=== PATIENT | male | born 1995 | race Caucasian/White ===

== ENCOUNTER 2017-10-02 09:26 | Emergency (ER) ==
[2017-10-02 09:31] VITALS: BP 111/73; TEMP 99; BMI 30.1
--- NOTE | 2017-10-02 10:04 | ED.PDOC ---
General ED Provider: Dr. TATYANA MARROQUIN Chief Complaint: Fever Stated Complaint: fever , cough, flu like symptoms Time Seen by Physician: 09:30 Mode of Arrival: Walk-In Information Source: Patient Exam Limitations: No limitations Primary Care Provider: ALCON RUSSO Nursing and Triage Documentation Reviewed and Agree: Yes Reviewed sepsis parameters & appropriate labs ordered?: Yes System Inflammatory Response Syndrome: Not Applicable Sepsis Protocol: For patient's 13 years and over: Temp is 96.8 and below OR 101 and greater Pulse >90 BPM Resp >20/minute Acutely Altered Mental Status Are patient's symptoms suggestive of a new infection, such as: -Pneumonia -Skin, Soft Tissue -Endocarditis -UTI -Bone, Joint Infection -Implantable Device -Acute Abdominal Infection -Wound Infection -Meningitis -Blood Stream Catheter Infection -Unknown EENT Complaint Exam - Throat Complaint/Exam Onset/Duration: 2 days flu like Symptoms Are: Still present Timimg: Intermittent Initial Severity: Mild Current Severity: Mild Associated Signs and Symptoms: Reports: Cough, Nasal congestion. Denies: Fever , Dysphagia, Drooling, Foreign body sensation, Chills, Wheezing, Hoarseness, Sinus discomfort, Difficulty breathing, Lethargy, Irritability, Decreased activity, Vomiting, Diarrhea, Decreased hearing, Ear drainage Uvula Midline: Yes Misty-tonsillar Fluctuence: No Scarlatinaform Rash Present: No Stridor Present: No Sinus Tenderness Present: No Tonsillar Hypertrophy Present: No Tonsillar Exudate Present: No Misty-tonsillar Swelling Present: No Adenopathy Present: No Splenomegaly Present: No Review of Systems - Review Of Systems Constitutional: Reports: No symptoms Eyes: Reports: No symptoms Ears, Nose, Mouth, Throat: Reports: No symptoms Respiratory: Reports: Cough Cardiac: Reports: No symptoms GI: Reports: No symptoms : Reports: No symptoms Musculoskeletal: Reports: No symptoms Skin: Reports: No symptoms Neurological: Reports: No symptoms Endocrine: Reports: No symptoms Hematologic/Lymphatic: Reports: No symptoms All Other Systems: Reviewed and Negative Past Medical History - Past Medical History Previously Healthy: Yes Endocrine: Reports: None Cardiovascular: Reports: None Respiratory: Reports: None Hematological: Reports: None Gastrointestinal: Reports: None Genitourinary: Reports: None Neuro/Psych: Reports: Migraine, Other (hydrocephalus as child - was told he would grow out of it) Musculoskeletal: Reports: Other (spondylosis spine) Cancer: Reports: None 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 - Surgical History General Surgical History: Reports: None - Family History Family History: Reports: None - Social History Smoking Status: Current every day smoker, Light tobacco smoker Hx Substance Use: No Alcohol Screening: Occasionally Physical Exam - Physical Exam Appearance: Well-appearing, No pain distress, Well-nourished Eyes: JEREMIAH, EOMI, Conjunctiva clear ENT: Ears normal, Nose normal, Epistaxis, Erythema Respiratory: Airway patent, Breath sounds clear, Breath sounds equal, Respirations nonlabored Cardiovascular: RRR, Pulses normal, No rub, No murmur GI/: Soft, Nontender, No masses, Bowel sounds normal, No Organomegaly Musculoskeletal: Normal strength, ROM intact, No edema, No calf tenderness Skin: Warm, Dry, Normal color Neurological: Sensation intact, Motor intact, Reflexes intact, Cranial nerves intact, Alert, Oriented Psychiatric: Affect appropriate, Mood appropriate Critical Care Note - Critical Care Note Total Time (mins): 0 Course - Course Vital Signs: Temp Pulse Resp BP Pulse Ox 10/02/17 09:27 99 F 77 20 111/73 96 Departure - Departure Time of Disposition: 10:02 Disposition: HOME SELF-CARE Discharge Problem: Fever, Bronchitis Instructions: Pharyngitis (ED), Viral Syndrome (ED) Condition: Good Pt referred to PMD for follow-up: Yes Additional Instructions: Please call your Family Physician as soon as possible to schedule a follow-up appointment. Allergies/Adverse Reactions: Allergies No Known Allergies Allergy (Verified 10/02/17 09:33) Home Medications: Ambulatory Orders 1 [No Reported Medications] 10/02/17
== END 2017-10-02 10:07 | disposition home or self-care (01) ==
LOC: ED 09:26
DX: J40 Bronchitis, not specified as acute or chronic (principal); F17.210 Nicotine dependence, cigarettes, uncomplicated
CPT/HCPCS: 99282

== ENCOUNTER 2018-12-26 03:17 | Emergency (ER) ==
[2018-12-26 03:22] VITALS: BP 132/90; TEMP 98; BMI 31.7
[2018-12-26] MEDS ORDERED: ZOFRAN 4 MG/2 ML IM STA (03:39)
[2018-12-26] MEDS ORDERED: DECADRON 4 MG/ML SDV IM STA (03:39)
[2018-12-26] MEDS ORDERED: DILAUDID 1 MG/ML SYRINGE IM STA (03:39)
--- NOTE | 2018-12-26 04:34 | CT ---
EXAM: CT lumbar spine without intravenous contrast 12/26/2018. Sagittal and coronal reformatted sarah ges obtained HISTORY: Back pain with radiculopathy COMPARISON: MRI thoracic spine 07/01/2016 FINDINGS: Transitional anatomy is present. There are six non-rib bearing lumbar-type vertebral bodi es. For the purpose of this examination this will be referred to as L1-L6. There is no evidence of acute fracture. 3 mm anterolisthesis of L6 on S1 secondary to bilateral L6 pars defects. This appea rs chronic. Anterior wedging configuration of T11, T12 and L1 appears chronic. Tiny anterior osteophyte formatio n. Multilevel small posterior disc bulge flattening the thecal sac. No definitive spinal stenosis. IMPRESSION: 1. Transitional anatomy. There are six lumbar non-rib bearing vertebral bodies. For the purpose of this examination these are referred to as L1-L6. 2. 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 3. Chronic degenerative findings as above. No acute osseous abnormality.
--- NOTE | 2018-12-26 04:58 | ED.PDOC ---
General ED Provider: Dr. MALDONADO GUTIERREZ-ER Chief Complaint: Extremity Pain/Injury Stated Complaint: my back hurts and my feet are numb Time Seen by Physician: 03:20 Mode of Arrival: Walk-In Information Source: Patient Exam Limitations: No limitations Primary Care Provider: ALCON RUSSO Nursing and Triage Documentation Reviewed and Agree: Yes Does patient meet sepsis criteria?: No System Inflammatory Response Syndrome: Not Applicable Sepsis Protocol: For patient's 13 years and over: Temp is 96.8 and below OR 101 and greater Pulse >90 BPM Resp >20/minute Acutely Altered Mental Status Are patient's symptoms suggestive of a new infection, such as: -Pneumonia -Skin, Soft Tissue -Endocarditis -UTI -Bone, Joint Infection -Implantable Device -Acute Abdominal Infection -Wound Infection -Meningitis -Blood Stream Catheter Infection -Unknown Musculoskeletal Complaint Exam - Back Pain Complaint/Exam Mechanism of Injury: Reports: No known trauma Onset/Duration: 2 days Symptoms Are: Still present Timing: Constant Initial Severity: Mild Current Severity: Moderate Location: Reports: Discrete Aggravating: Reports: Movements, Lifting, Bending, Walking Alleviating: Reports: Position Associated Signs and Symptoms: Reports: Tingling Epidural Abcess Risk Factors: Reports: None Related Surgical History: Reports: None Focal Tenderness: Yes Paraspinal Muscle Tenderness: No Paraspinal Muscle Spasm: No Scoliosis: No Lordosis: No Kyphosis: No SLR Test: Right Negative, Left Negative Hip Motion Testing Pain: Right Negative, Left Negative Focal Weakness: Present: None Focal Sensory Loss: Present: RLE, LLE Gait: Present: Abnormal Differential Diagnoses: Compressive Cord Syndrome, Herniated Disk Review of Systems - Review Of Systems Constitutional: Reports: No symptoms Eyes: Reports: No symptoms Ears, Nose, Mouth, Throat: Reports: No symptoms Respiratory: Reports: No symptoms Cardiac: Reports: No symptoms GI: Reports: No symptoms : Reports: No symptoms Musculoskeletal: Reports: Back pain Skin: Reports: No symptoms Neurological: Reports: Numbness, Tingling Endocrine: Reports: No symptoms Hematologic/Lymphatic: Reports: No symptoms All Other Systems: Reviewed and Negative Past Medical History - Past Medical History Previously Healthy: Yes Endocrine: Reports: None Cardiovascular: Reports: None Respiratory: Reports: None Hematological: Reports: None Gastrointestinal: Reports: None Genitourinary: Reports: None Neuro/Psych: Reports: Migraine, Other (hydrocephalus as child - was told he would grow out of it) Musculoskeletal: Reports: Other (spondylosis spine) Cancer: Reports: None 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 - Surgical History General Surgical History: Reports: None - Family History Family History: Reports: None - Social History Smoking Status: Never smoker Hx Substance Use: No Alcohol Screening: Occasionally - Immunizations Tetanus Shot up to Date: Yes Physical Exam - Physical Exam Appearance: Well-appearing, No pain distress, Well-nourished Eyes: JEREMIAH, EOMI, Conjunctiva clear ENT: Ears normal, Nose normal, Oropharynx normal Neck: Supple Respiratory: Airway patent, Breath sounds clear, Breath sounds equal, Respirations nonlabored Cardiovascular: RRR GI/: Soft, Nontender, No masses, Bowel sounds normal, No Organomegaly Musculoskeletal: Normal strength Skin: Warm, Dry, Normal color Neurological: Sensation intact, Motor intact, Reflexes intact, Cranial nerves intact, Alert, Oriented Psychiatric: Affect appropriate Interpretation - Radiology Interpretation Radiology Interpretation By: Radiologist Radiology Results: Positive Exam Interpreted: CT Scan Critical Care Note - Critical Care Note Total Time (mins): 0 Course - Course Orders, Labs, Meds: Orders Category Date Time Status Dexamethasone 4 mg/ml Inj [Decadron 4 mg/ml Sdv] MEDS 12/26/18 03:39 Discontinued 4 mg IM ONCE STA Hydromorphone HCl [Dilaudid 1 mg/ml Syringe] MEDS 12/26/18 03:39 Discontinued 2 mg IM ONCE STA Ondansetron HCl/Pf [Zofran 4 mg/2 ml] MEDS 12/26/18 03:39 Discontinued 4 mg IM ONCE STA CT LUMBAR SPINE W/O CONTRAST Stat RADS 12/26/18 03:39 Completed Medications Discontinued Medications Generic Name Dose Route Start Last Admin Trade Name Freq PRN Reason Stop Dose Admin Dexamethasone Sodium Phosphate 4 mg 12/26/18 03:39 12/26/18 03:48 Decadron 4 Mg/Ml Sdv IM 12/26/18 03:40 4 mg ONCE STA Administration Hydromorphone HCl 2 mg 12/26/18 03:39 12/26/18 03:48 Dilaudid 1 Mg/Ml Syringe IM 12/26/18 03:40 2 mg ONCE STA Administration Ondansetron HCl 4 mg 12/26/18 03:39 12/26/18 03:47 Zofran 4 Mg/2 Ml IM 12/26/18 03:40 4 mg ONCE STA Administration Vital Signs: Temp Pulse Resp BP Pulse Ox 12/26/18 03:19 98 F 100 H 14 132/90 96 Departure - Departure Time of Disposition: 04:58 Disposition: TSF SHORT-TRM HOSP Discharge Problem: Low back pain Qualifiers: Chronicity: acute Back pain laterality: midline Sciatica presence: with sciatica Sciatica laterality: bilateral sciatica Qualified Code(s): M54.42 - Lumbago with sciatica, left side; M54.41 - Lumbago with sciatica, right side Instructions: Low Back Strain (ED) Condition: Good Pt referred to PMD for follow-up: Yes IPMP verified?: No Allergies/Adverse Reactions: Allergies aspirin Adverse Reaction (Mild, Verified 12/26/18 03:18) Rash Home Medications: Ambulatory Orders 1 [No Reported Medications] 10/02/17 Transfer Form Completed: Yes Disposition Discussed With: Patient
== END 2018-12-26 05:29 | disposition short-term general hospital (02) ==
LOC: ED 03:17
DX: M54.42 Lumbago with sciatica, left side (principal); M54.41 Lumbago with sciatica, right side
CPT/HCPCS: 96372; 99285